=== PATIENT | male | born 2000 | race Caucasian/White ===

== ENCOUNTER 2025-01-28 01:24 | Emergency (ER) | payer OTHER ==
[~2025-01-28] VITALS: Ht 177.8 cm; Wt 68.0 kg
[2025-01-28 01:37] VITALS: O2SAT 100
[2025-01-28] MEDS ORDERED: BO1 TP (03:14)
[2025-01-28] MEDS: ACETAMINOPHEN 325MG TABLET PO ONE (03:23)
[2025-01-28] MEDS: TETANUS, DIPHTHERIA, PERTUSSIS VAC/PF 0.5ML (>10YR OLD) IM ONE (03:24)
[2025-01-28 03:40] VITALS: BP 112/64; PULSE 69; RESP 13; TEMP 36.9; O2SAT 99
== END 2025-01-28 03:44 | disposition home or self-care (01) ==
LOC: ER 01:24
DX: S61.011A Laceration without foreign body of right thumb without damage to nail, initial encounter (principal); X58.XXXA Exposure to other specified factors, initial encounter; Y93.89 Activity, other specified; Y92.89 Other specified places as the place of occurrence of the external cause; Y99.8 Other external cause status
CPT/HCPCS: 90471; 90715; 99283